=== PATIENT | female | born 1975 | race Caucasian/White ===

== ENCOUNTER 2016-06-13 22:04 | Emergency (ER) | payer OTHER ==
[~2016-06-13] VITALS: Ht 162.6 cm; Wt 109.4 kg
[2016-06-13] MEDS ORDERED: IRON15TA3 PO (22:35)
[2016-06-13] MEDS ORDERED: SODIUM CHLORIDE 0.9% 1,000 ML IV ONE (22:52)
[2016-06-13] MEDS ORDERED: SODIUM CHLORIDE 0.9% 1,000ML IVBOLUS ONE (23:00)
[2016-06-13] MEDS ORDERED: SODIUM CHLORIDE FLUSH 10ML SYR IVF ONE (23:00)
[2016-06-13 23:15] LABS: HEMOGLOBIN 8.9 g/dL (11.7-16.4)
[2016-06-13 23:22] LABS: BLOOD UREA NITROGEN 10 mg/dL (7-18)
[2016-06-13 23:55] VITALS: BP 105/66
== END 2016-06-14 00:52 | disposition home or self-care (01) ==
LOC: ED 23:59
DX: N93.8 Other specified abnormal uterine and vaginal bleeding (principal); N92.0 Excessive and frequent menstruation with regular cycle; N92.1 Excessive and frequent menstruation with irregular cycle; L03.011 Cellulitis of right finger; D50.0 Iron deficiency anemia secondary to blood loss (chronic); F17.200 Nicotine dependence, unspecified, uncomplicated
CPT/HCPCS: 36415; 76830; 80048; 82040; 84703; 85025; 96360; 99285; J7030

== ENCOUNTER 2017-03-01 22:56 | Emergency (ER) | payer OTHER ==
[~2017-03-01] VITALS: Ht 165.1 cm; Wt 114.5 kg
[~2017-03-01 22:56] MED LIST: IRON15TA3 PO
[2017-03-02 00:27] LABS: HEMATOCRIT 32.6 % (34.6-47.8); HEMOGLOBIN 10.4 g/dL (11.7-16.4); WHITE BLOOD COUNT 8.2 x10^3/uL (3.4-10)
[2017-03-02 00:37] LABS: ASPARTATE AMINO TRANSFERASE 20 U/L (15-37); BLOOD UREA NITROGEN 11 mg/dL (7-18)
[2017-03-02 00:49] LABS: IS PT STATUS REG ER OR PRE ER? YES
[2017-03-02] MEDS ORDERED: CEFTRIAXONE 1,000 MG ONE (01:26)
[2017-03-02] MEDS ORDERED: CEFTRIAXONE 1,000 MG IM ONE (01:30)
[2017-03-02 01:51] VITALS: BP 127/71
== END 2017-03-02 02:19 | disposition home or self-care (01) ==
LOC: ED 23:59
DX: N30.00 Acute cystitis without hematuria (principal); N10 Acute pyelonephritis; F17.200 Nicotine dependence, unspecified, uncomplicated; E66.9 Obesity, unspecified
CPT/HCPCS: 36415; 80053; 81001; 84484; 84703; 85025; 87077; 87086; 87186; 93005; 96372; 99285; J0696

== ENCOUNTER 2017-09-13 06:23 | Emergency (ER) | payer OTHER ==
[~2017-09-13] VITALS: Ht 165.1 cm; Wt 102.0 kg
[2017-09-13 07:25] LABS: BASOPHILS # (AUTO) 0.03 x10^3/uL (0-0.1); BASOPHILS % (AUTO) 1 % (0-1); EOSINOPHILS # (AUTO) 0.25 x10^3/uL (0-0.4); EOSINOPHILS % (AUTO) 3 % (1-7); LYMPHOCYTES # (AUTO) 1.56 x10^3/uL (1-3.4); LYMPHOCYTES % (AUTO) 21 % (22-44); MD NO; MEAN CORPUSCULAR HEMOGLOBIN 20.9 pg (27.0-34.8); MEAN CORPUSCULAR HGB CONC 30.9 g/dL (32.4-35.8); MEAN CORPUSCULAR VOLUME 67.6 fL (80-100); MEAN PLATELET VOLUME 7.6 fL (7.4-10.4); MONOCYTES # (AUTO) 0.54 x10^3/uL (0.2-0.8); MONOCYTES % (AUTO) 7 % (2-9); NEUTROPHILS # (AUTO) 5.05 x10^3/uL (1.8-6.8); NEUTROPHILS % (AUTO) 68 % (42-75); PLATELET COUNT 413 x10^3/uL (130-400); RED BLOOD COUNT 4.87 x10^6/uL (3.82-5.3); RED CELL DISTRIBUTION WIDTH 18.3 % (9.6-15.2)
[2017-09-13 07:37] LABS: ANION GAP 7 mmol/L (5-15); CALCIUM 9.1 mg/dL (8.5-10.1); CHLORIDE 111 mmol/L (98-107)
[2017-09-13 07:38] LABS: ALBUMIN 3.6 g/dL (3.4-5.0); T4 (THYROXINE) 10.7 mcg/dL (4.8-13.9)
[2017-09-13 07:42] LABS: TROPONIN I < 0.015 ng/mL (0.000-0.045)
[2017-09-13 08:13] VITALS: BP 119/82
== END 2017-09-13 08:15 | disposition home or self-care (01) ==
LOC: ED 07:25
DX: R00.2 Palpitations (principal)
CPT/HCPCS: 36415; 71046; 80048; 82040; 83735; 84436; 84443; 84484; 85025; 93005; 99285

== ENCOUNTER 2017-11-21 10:47 | Emergency (ER) | payer SELFPAY ==
[~2017-11-21] VITALS: Ht 165.1 cm; Wt 105.5 kg
[2017-11-21 12:44] LABS: HCG UR SG 1.015 (1.003-1.030); MICROSCOPIC AUTO
[2017-11-21 12:45] LABS: CULTURE INDICATED? YES
[2017-11-21 13:54] VITALS: BP 132/81
== END 2017-11-21 14:26 | disposition home or self-care (01) ==
LOC: ED 13:29
DX: R10.30 Lower abdominal pain, unspecified (principal)
CPT/HCPCS: 81001; 81025; 87077; 87086; 87186; 99284

== ENCOUNTER 2018-06-26 21:26 | Emergency (ER) | payer MEDICAID ==
[~2018-06-26] VITALS: Ht 162.6 cm; Wt 108.0 kg
--- NOTE | 2018-06-26 21:49 | NUR ---
FIRST CONTACT WITH PT. PT C/O RECURRENT UNDIGNOSED SKIN CONDITION ON BILAT HANDS, BLIAT LEGS AND UPPER BACK X 3 YEARS. SKIN IS SWOLLEN, PAINFUL AND ITCHY AND DRAINING PUS. PT'S AOX4. RESPS EVEN AND UNLABORED. EDMD AT BEDSIDE TO ASSESS AT THIS TIME.
--- NOTE | 2018-06-26 21:53 | NUR ---
PT MEDICATED PER EMAR. PT TOLERATED WELL.
[2018-06-26 22:28] VITALS: BP 135/82
--- NOTE | 2018-06-26 22:29 | NUR ---
pt given dc instructions and scripts. pt's aox4. resps even and unlabored. pt amb to dc with steady gait. no acute distress at dc.
== END 2018-06-26 22:30 | disposition home or self-care (01) ==
LOC: ED 22:26
DX: L30.8 Other specified dermatitis (principal)
CPT/HCPCS: 99283; J7512

== ENCOUNTER 2018-07-23 13:31 | Emergency (ER) | payer MEDICAID ==
[~2018-07-23] VITALS: Ht 165.1 cm; Wt 109.5 kg
[2018-07-23 14:01] VITALS: BP 130/79
--- NOTE | 2018-07-23 14:13 | NUR ---
PT AMBULATORY TO ROOM 6 W/ C/O ECZEMA AND DRY SKING TO BILAT HANDS. PT ALSO REQUESTING REFILL FOR ECZEMA CREAM. PT RESTING ON GURNEY. LAGUNAS.
[2018-07-23] MEDS ORDERED: BACITRACIN ZINC OINT 500U/GM, 0.9 GM ONE (14:29)
== END 2018-07-23 15:02 | disposition home or self-care (01) ==
LOC: ED 14:56
DX: L20.84 Intrinsic (allergic) eczema (principal)
CPT/HCPCS: 99283; J7512